=== PATIENT | female | born 1995 | race African-American/Black ===

== ENCOUNTER 2024-03-11 15:18 | Emergency (ER) | payer OTHER ==
[~2024-03-11] VITALS: Ht 165.1 cm; Wt 77.3 kg
[2024-03-11 15:22] VITALS: TEMP 99.4
[2024-03-11 16:08] LABS: STREP A NEGATIVE
[2024-03-11] MEDS ORDERED: Ibuprofen 600 MG TAB PO ONE (16:30)
[2024-03-11 17:08] VITALS: BP 129/91; PULSE 86
== END 2024-03-11 17:10 | disposition home or self-care (01) ==
LOC: COL.ER 15:18
PROVIDERS: Nurse Practitioner
DX: J02.9 Acute pharyngitis, unspecified (principal)

== ENCOUNTER 2024-05-22 10:28 | Emergency (ER) | payer OTHER ==
[~2024-05-22] VITALS: Ht 165.1 cm; Wt 77.3 kg
[2024-05-22 10:52] VITALS: TEMP 98
[2024-05-22 13:07] LABS: BASO % 0.4 % (0.0-2.0); EOS # 0.1 K/mm3 (0.0-0.7); GRAN # 3.8 K/mm3 (1.4-6.5); GRAN % 56.9 % (42.2-75.2); HEMATOCRIT 37.7 % (37.0-47.0); HEMOGLOBIN 12.4 g/dl (12.5-16.0); LYMPH # 2.2 K/mm3 (1.2-3.4); LYMPH % 32.9 % (20.0-51.0); MEAN CELL VOLUME 86 fl (80.0-100.0); MEAN CORPUSCULAR HEMOGLOBIN 28 pg (27-31); MEAN CORPUSCULAR HGB CONC 33 g/dl (33.0-37.0); MONO # 0.6 K/mm3 (0.1-0.6); MONO % 8.5 % (1.7-9.3); PLATELET COUNT 304 K/mm3 (130-400); REDCELL DISTRIBUTION WIDTH-CV 12.7 % (11.5-14.5)
[2024-05-22 13:11] LABS: ALBUMIN 3.7 g/dL (3.5-5.0); BILIRUBIN,TOTAL 0.4 mg/dL (0.2-1.2); CALCIUM 9.5 mg/dL (8.4-10.2); CREATININE, serum 0.75 mg/dL (0.57-1.11); POTASSIUM 3.6 mEq/L (3.5-4.5); TOTAL PROTEIN 7.1 g/dl (6.2-8.1)
[2024-05-22] MEDS ORDERED: SPRINTEC 35 MCG1 TAB PO (13:24)
[2024-05-22 13:27] LABS: PH 6.5 (5.0-8.5); URINE APPEARANCE CLEAR (CLEAR/HAZY); URINE BLOOD TRACE (NEGATIVE); URINE COLOR YELLOW (YELLOW); URINE GLUCOSE NEGATIVE (NEGATIVE); URINE KETONE TRACE (NEGATIVE); URINE NITRATE NEGATIVE (NEGATIVE); URINE PROTEIN(semi-quant) NEGATIVE (NEGATIVE)
[2024-05-22 13:39] LABS: COLLECTION METHOD CLEAN CATCH
[2024-05-22 13:48] VITALS: BP 133/81; PULSE 64
[2024-05-22] MEDS ORDERED: FLAGYL500 MG PO (14:45)
== END 2024-05-22 13:48 | disposition home or self-care (01) ==
LOC: COL.ER 10:28
PROVIDERS: Nurse Practitioner
DX: N93.9 Abnormal uterine and vaginal bleeding, unspecified (principal); A59.01 Trichomonal vulvovaginitis

== ENCOUNTER 2024-07-12 15:26 | Emergency (ER) | payer OTHER ==
[~2024-07-12] VITALS: Ht 165.1 cm; Wt 77.7 kg
[~2024-07-12 15:26] MED LIST: FLAGYL500 MG PO; SPRINTEC 35 MCG1 TAB PO
[2024-07-12 15:35] VITALS: BP 122/85; TEMP 98
[2024-07-12 18:06] VITALS: PULSE 86
== END 2024-07-12 18:06 | disposition home or self-care (01) ==
LOC: COL.ER 15:26
DX: Z34.80 Encounter for supervision of other normal pregnancy, unspecified trimester (principal)